=== PATIENT | female | born 1985 | race Two or more races ===

== ENCOUNTER 2025-01-28 07:37 | Inpatient (IN) | payer OTHER ==
[~2025-01-28] VITALS: Ht 152.4 cm; Wt 72.6 kg
[2025-01-28] MEDS ORDERED: SINGULAIR10 MG PO (08:18)
[2025-01-28] MEDS ORDERED: NASAL MIST126 ML (08:19)
[2025-01-28] MEDS ORDERED: HYOSCYAMINE SULFATE 0.125 MG TAB.SUBL SL ONE (09:00)
[2025-01-28] MEDS ORDERED: ONDANSETRON HCL 2 MG/ML VIAL IM ONE (09:00)
[2025-01-28 09:48] LABS: BASO % 0.6 % (0.1-1.2); EOS # 0.03 (0.04-0.54); EOS % 0.9 % (0.7-7.0); LYMPH # 1.03 (1.18-3.74); LYMPH % 29.5 % (19.3-53.1); MEAN PLATELET VOLUME 9.40 fl (9.4-12.4); MONO # 0.43 (0.24-0.82); NEUT # 1.98 (1.56-6.13); NEUT % 56.7 % (34.0-71.1); RED CELL DISTRIBUTION WIDTH 12.6 % (11.6-14.4)
[2025-01-28 09:54] LABS: MONO % 12.3 % (4.7-12.5)
[2025-01-28 10:26] LABS: AST/SGOT 1206.0 U/L (15-37); BILIRUBIN TOTAL 4.27 mg/dL (0.3-1.2); BUN CREA RATIO 15.0 (7.0-25.0); CREATININE SERUM 0.68 mg/dL (0.55-1.02); GFR 95.83; GLOBULINA 4.2 G/DL (2.4-3.5); GLUCOSE FASTING 98.0 mg/dL (65-100); OSMOLALITY SERUM 280.0 MOSM/KG (275-295)
[2025-01-28 10:39] LABS: URINE APPEARANCE Clear; URINE BACTERIA 393.5 uL (0.0-1933); URINE BILIRRUBIN Moderate (NEGATIVE); URINE BLOOD Negative; URINE COLOR Dark Yellow; URINE EPITHELIAL CELLS 23.0 uL (0.0-38.8); URINE GLUCOSE Negative (NEGATIVE); URINE KETONE Negative (NEGATIVE); URINE LEUKOCYTE Trace; URINE NITRATE Negative; URINE PROTEIN Trace (NEGATIVE); URINE RBC 8.0 uL (0.0-20.8); URINE UROBILINOGEN 1.0 E.U./dl; URINE WBC 4.7 uL (0.0-23.2)
[2025-01-28 10:47] LABS: URINE CAST 0.00 uL (0.0-1.40)
[2025-01-28 15:15] LABS: INR 1.01
[2025-01-28] MEDS ORDERED: CIPROFLOXACIN IN 5 % DEXTROSE 400 MG/200 ML PIGGYBAG IV ONE (15:15)
[2025-01-28] MEDS ORDERED: PANTOPRAZOLE SODIUM 40 MG/VIAL VIAL IV PUSH ONE (15:15)
[2025-01-28] MEDS ORDERED: 0.9 % SODIUM CHLORIDE 1,000 ML IV ONE (15:30)
[2025-01-28] MEDS ORDERED: FAMOTIDINE/PF 20 MG in 0.9 % SODIUM CHLORIDE 100 ML IV SCH (19:51)
[2025-01-28] MEDS ORDERED: ACETAMINOPHEN 500 MG GEL..CAP PO SCH (20:00)
[2025-01-28] MEDS ORDERED: MORPHINE SULFATE 4 MG/ML CARTRIDGE IV PRN (20:00)
[2025-01-28] MEDS ORDERED: ONDANSETRON HCL 4 MG in 0.9 % SODIUM CHLORIDE 50 ML IV PRN (20:00)
[2025-01-28] MEDS ORDERED: RINGERS SOLUTION,LACTATED 1,000 ML IV SCH (20:00)
[2025-01-28] MEDS ORDERED: CIPROFLOXACIN IN 5 % DEXTROSE 200 ML IV SCH (21:00)
[2025-01-28 21:57] VITALS: BP 121/80; O2SAT 98
[2025-01-28 22:00] VITALS: BP 121/80
[2025-01-29 04:22] VITALS: BP 110/72; O2SAT 98
[2025-01-29 06:54] LABS: AST/SGOT 470.0 U/L (15-37); BILIRUBIN TOTAL 1.74 mg/dL (0.3-1.2); BILIRUBIN,CONJUGATED 0.42 mg/dL (0.0-0.2)
[2025-01-29 06:55] LABS: ALT/SGPT 1141.0 U/L (12-78)
[2025-01-29 08:20] VITALS: BP 110/76; O2SAT 97
[2025-01-29] MEDS ORDERED: ENOXAPARIN SODIUM 40 MG/0.4 ML SYRINGE SUBCUTANEO SCH (09:00)
[2025-01-29] MEDS ORDERED: LORazepam 2 MG/ML VIAL IV STA (09:49)
[2025-01-29 21:57] VITALS: BP 112/76
[2025-01-30 02:51] VITALS: BP 104/68; O2SAT 97
[2025-01-30 09:07] VITALS: BP 96/55; O2SAT 98
[2025-01-30 20:05] VITALS: BP 111/76
[2025-01-31 01:54] VITALS: BP 121/82; O2SAT 99
[2025-01-31 08:08] LABS: BASO % 0.7 % (0.1-1.2); EOS # 0.11 (0.04-0.54); EOS % 2.6 % (0.7-7.0); LYMPH # 2.11 (1.18-3.74); LYMPH % 49.2 % (19.3-53.1); MEAN PLATELET VOLUME 11.10 fl (9.4-12.4); MONO # 0.43 (0.24-0.82); MONO % 10.0 % (4.7-12.5); NEUT # 1.60 (1.56-6.13); NEUT % 37.3 % (34.0-71.1); RED CELL DISTRIBUTION WIDTH 12.6 % (11.6-14.4)
[2025-01-31 08:25] VITALS: BP 118/77; O2SAT 99
[2025-01-31 08:55] LABS: ALT/SGPT 518.0 U/L (12-78); AST/SGOT 75.0 U/L (15-37); BILIRUBIN TOTAL 1.08 mg/dL (0.3-1.2); BUN CREA RATIO 20.0 (7.0-25.0); CREATININE SERUM 0.46 mg/dL (0.55-1.02); GFR 150.45; GLOBULINA 3.2 G/DL (2.4-3.5); GLUCOSE FASTING 80.0 mg/dL (65-100); OSMOLALITY SERUM 277.0 MOSM/KG (275-295)
[2025-01-31 16:22] VITALS: BP 104/75; O2SAT 96
[2025-02-01 01:05] VITALS: BP 117/79; O2SAT 98
[2025-02-01 08:45] VITALS: BP 122/79; O2SAT 100
[2025-02-01] MEDS ORDERED: CLINDAMYCIN PHOSPHATE 150 MG/ML (900mg) IV ONE (09:00)
[2025-02-01 12:47] LABS: ALT/SGPT 443.0 U/L (12-78); AST/SGOT 89.0 U/L (15-37); BILIRUBIN TOTAL 0.99 mg/dL (0.3-1.2); BILIRUBIN,CONJUGATED 0.37 mg/dL (0.0-0.2)
[2025-02-01] MEDS ORDERED: KETOROLAC TROMETHAMINE 30 MG VIAL IV NR (13:00)
[2025-02-01 17:15] VITALS: BP 143/80; O2SAT 98
[2025-02-02 03:08] VITALS: BP 96/58; O2SAT 98
[2025-02-02 05:49] LABS: ALT/SGPT 336.0 U/L (12-78); AST/SGOT 59.0 U/L (15-37); BILIRUBIN TOTAL 0.71 mg/dL (0.3-1.2); BILIRUBIN,CONJUGATED 0.24 mg/dL (0.0-0.2)
[2025-02-02 09:00] VITALS: BP 112/76; O2SAT 98
[2025-02-02] MEDS ORDERED: PROTONIX40 MG PO (10:54)
[2025-02-02] MEDS ORDERED: INTESTINEX680 M1 PO (10:54)
[2025-02-02 11:54] LABS: BASO % 0.2 % (0.1-1.2); EOS # 0.04 (0.04-0.54); EOS % 0.9 % (0.7-7.0); LYMPH # 1.43 (1.18-3.74); LYMPH % 31.2 % (19.3-53.1); MEAN PLATELET VOLUME 9.40 fl (9.4-12.4); MONO # 0.59 (0.24-0.82); NEUT # 2.50 (1.56-6.13); NEUT % 54.6 % (34.0-71.1); RED CELL DISTRIBUTION WIDTH 12.9 % (11.6-14.4)
[2025-02-02 12:05] LABS: MONO % 12.9 % (4.7-12.5)
== END 2025-02-02 16:40 | disposition home or self-care (01) | DRG 418 ==
LOC: ER 07:38 → MEDI 20:15
PROVIDERS: General Practice; Student in an Organized Health Care Education/Training Program; ADMIT Internal Medicine; ATTEND Internal Medicine
PROC: BF37ZZZ Magnetic Resonance Imaging (MRI) of Pancreas (ICD-10-PCS; 2025-01-28)
PROC: BW40ZZZ Ultrasonography of Abdomen (ICD-10-PCS; 2025-01-28)
PROC: 0FT44ZZ Resection of Gallbladder, Percutaneous Endoscopic Approach (ICD-10-PCS; principal; 2025-02-01 07:00)
DX: K80.10 Calculus of gallbladder with chronic cholecystitis without obstruction (principal); R17 Unspecified jaundice; K29.70 Gastritis, unspecified, without bleeding; R74.01 Elevation of levels of liver transaminase levels; R74.8 Abnormal levels of other serum enzymes; R10.9 Unspecified abdominal pain; K80.50 Calculus of bile duct without cholangitis or cholecystitis without obstruction